=== PATIENT | female | born 1995 | race Caucasian/White ===

== ENCOUNTER 2017-01-05 11:57 | Emergency (ER) | payer BC, OTHER ==
[2017-01-05 11:57] VITALS: TEMP 36.7
--- NOTE | 2017-01-05 12:18 | EMERGENCY ROOM VISIT NOTE ---
History Report prepared by Scribimer: Mira Mac Under the Supervision of: Hector NaqviO. First contact with patient: 12:01 Chief Complaint: HAND PAIN/INJURY Stated Complaint: HAND TRAUMA History of Present Illness The patient is a 21 year old female who presents to the Emergency Room with complaints of severe left third finger pain starting a few minutes prior to arrival. The patient was leading a horse by the [place] when she touched an electric fence. She felt the electric shock go through her and the horse. The horse ran and dragged her through the mud. She denies any loss of consciousness. She was able to ambulate as normal after the incident. She currently complains of a headache and left third finger laceration. She has worsening pain with movement of the left hand. Her tetanus shot is up-to-date. She does not have any medical problems. Pt denies change in vision, fevers, chest pain, shortness of breath, nausea, vomiting, diarrhea, pain with urination , and lower extremity pain. She is left hand dominant. Source of History: patient Onset: a few minutes prior to arrival Position: finger(s) (left third) Symptom Intensity: severe Quality: other (laceration) Modifying Factors (Worsening): movement (of left hand) Associated Symptoms: + headache, No LOC, No fevers, No chest pain, No SOB, No nausea, No vomiting, No diarrhea Review of Systems See HPI for pertinent positives & negatives. A total of 10 systems reviewed and were otherwise negative. Past Medical & Surgical Medical Problems: (1) No Known Active Medical Problems Family History Patient reports no known family medical history. Social History Marital Status: single Occupation Status: student Current/Historical Medications No Active Prescriptions or Reported Meds Allergies Coded Allergies: No Known Allergies (Unverified , 01/05/17) Physical Exam Vital Signs Date Time Temp Pulse Resp B/P (MAP) Pulse Ox O2 Delivery O2 Flow Rate FiO2 01/05/17 14:37 110 20 151/102 96 Room Air 01/05/17 13:46 70 15 137/75 99 Room Air 01/05/17 12:25 83 01/05/17 11:57 36.7 78 20 140/81 100 Room Air Physical Exam GENERAL: Sitting up in bed, disheveled, minimal distress, dirt covering majority of clothes and body. HEAD: normal cephalic, atraumatic EYE EXAM: normal conjunctiva, PERRL and EOM's grossly intact OROPHARYNX: no exudate, no erythema, lips, buccal mucosa, and tongue normal and mucous membranes are moist EARS: TMs clear b/l NECK: supple, no nuchal rigidity, no adenopathy, non-tender CHEST: stable to compression anteriorly and posteriorly. Abrasions anterior chest. LUNGS: clear to auscultation. Normal chest wall mechanics HEART: no murmurs, S1 normal and S2 normal ABDOMEN: abdomen soft, non-tender, normo-active bowel sounds, no masses, no rebound or guarding. PELVIS: stable to compression anteriorly and posteriorly BACK: Back is symmetrical on inspection and there is no deformity, no midline tenderness, no CVA tenderness. UPPER EXTREMITIES: Left third digit on dorsal aspect with a large laceration back to PIP, medial, and lateral, dirt and grass present within the wound, no active bleeding. Nail is still partially in place. Expose bone and tendon present. LOWER EXTREMITIES: full active and passive range of motion of all joints without tenderness to palpation NEURO EXAM: Normal sensorium, cranial nerves II-XII grossly intact, normal speech, no gross weakness of legs. GCS: 15. Medical Decision & Procedures ER Provider Diagnostic Interpretation: X-ray and CT results as stated below per my review and the radiologist's interpretation: CT SCAN OF THE BRAIN WITHOUT IV CONTRAST CLINICAL HISTORY: Trauma. COMPARISON STUDY: No priors. TECHNIQUE: Unenhanced axial CT scan of the brain is performed from the vertex to the skull base. Automated dose control exposure was utilized. A dose lowering technique was utilized adhering to the principles of ALARA. CT DOSE: 638.56 mGycm FINDINGS: Brain parenchyma: The brain parenchyma is normal in appearance. There is no hemorrhage, mass effect, or evidence of acute territorial ischemia by CT criteria. Dillard-white matter is preserved. No extra-axial fluid collection is seen. Ventricles, sulci, cisterns: Normal in configuration. Intracranial vasculature: The visualized intracranial vasculature at the skull base is normal in appearance. Calvarium: There is no depressed calvarial fracture. Sinuses and mastoids: The visualized paranasal sinuses are clear. The mastoid air cells are well pneumatized. Orbits: The bony orbits are grossly intact. IMPRESSION: No acute intracranial abnormality. Electronically signed by: Guillermo Carey M.D. 01/05/2017 1:10 PM Dictated Date/Time: 01/05/2017 1:06 PM LEFT HAND MIN 3 VIEWS ROUTINE HISTORY: 21 years-old Female acute hand trauma with third digit laceration. COMPARISON: None available TECHNIQUE: 3 views of the left hand. FINDINGS: Evaluation of fine bony detail is limited secondary to patient positioning and overlying bandage material. There is a large laceration involving the distal third digit with fracture or dislocation of the distal phalanx which is dislocated radially and dorsally in relation to the middle phalanx. There also appears to be a fracture involving the distal articular aspect of the third middle phalanx. There are multiple radiodensities in the distal third digit suggesting bone fragments or radiopaque foreign bodies. There is associated moderate soft tissue swelling. No additional acute fracture or dislocation is identified. Bone mineralization is within normal limits. IMPRESSION: 1. Acute fracture dislocation of the distal third digit involving the distal and middle phalanges. Multiple radiodensities about the distal third digit soft tissues suggest bone fragments and/or radiopaque foreign bodies. 2. No additional acute fracture or dislocation is identified. The above report was generated using voice recognition software. It may contain grammatical, syntax or spelling errors. Electronically signed by: Maxim Webb M.D. 01/05/2017 1:54 PM Dictated Date/Time: 01/05/2017 1:[address] SCAN OF THE CHEST WITH IV CONTRAST CLINICAL HISTORY: Trauma. COMPARISON STUDY: No priors. TECHNIQUE: Following the IV administration of 92 cc of Optiray 320, CT scan of the thorax was performed from the thoracic inlet to the upper abdomen. Images are reviewed in the axial, sagittal, and coronal planes. IV contrast was administered without complication. A dose lowering technique was utilized adhering to the principles of ALARA. The examination is degraded by streak artifact from the patient's arms which could not be elevated above the chest. CT DOSE: 519.95 mGycm FINDINGS: Thyroid: Imaged portions of the thyroid gland are normal in size and attenuation. Thoracic aorta: The thoracic aorta is normal in caliber and demonstrates standard 3-vessel arch anatomy. No dissection is seen. Pulmonary vasculature: The pulmonary trunk is normal in caliber. There are no filling defects identified in the central pulmonary vessels to indicate pulmonary embolus. Note that this examination was not protocoled for evaluation of the pulmonary arteries. Heart: The heart is normal in size and configuration, and without pericardial effusion. Lungs and pleural spaces: The lungs and pleural spaces are clear. No pneumothorax is seen. The trachea and central airways are patent. Mediastinum: There is no mediastinal lymphadenopathy. Starla: Clear. Axillae: There is no axillary lymphadenopathy. Upper abdomen: Partially visualized upper abdominal viscera is within normal limits. Skeletal structures: The bony thorax appears intact. No lytic or blastic bony lesions are seen. IMPRESSION: 1. There is no acute posttraumatic intrathoracic abnormality. 2. The lungs are clear. Electronically signed by: Guillermo Carey M.D. 01/05/2017 1:22 PM Dictated Date/Time: 01/05/2017 1:[address] SCAN OF THE CERVICAL SPINE CLINICAL HISTORY: Trauma. COMPARISON STUDY: No priors. TECHNIQUE: CT scan of the cervical spine is performed from the skull base to the upper thoracic spine. Images are reviewed in the axial, sagittal, and coronal planes. IV contrast was not administered for this examination. A dose lowering technique was utilized adhering to the principles of ALARA. CT DOSE: 446.00 mGycm FINDINGS: Skeletal structures: The skeletal structures are well mineralized. There is no evidence of fracture or subluxation involving the cervical spine. Vertebral body height and alignment are maintained. There is straightening of cervical lordosis with mild reversal centered at C4-C5. The odontoid process and lateral masses are intact. The atlantoaxial articulation is preserved. The spinous processes appear intact. Intervertebral discs: The disc spaces are well maintained. Central canal: Widely patent. Soft tissues: The prevertebral and paraspinous soft tissues are within normal limits. Calvarium: The visualized calvarium at the skull base appears intact. Brain parenchyma: Partially visualized brain parenchyma the skull base is within normal limits. Sinuses and mastoids: The visualized paranasal sinuses are clear. The mastoid air cells are well pneumatized. Lung apices: Clear as visualized. Soft tissues: There is a small suboccipital scalp contusion. IMPRESSION: There is no evidence of fracture or subluxation involving the cervical spine. Electronically signed by: Guillermo Carey M.D. 01/05/2017 1:16 PM Dictated Date/Time: 01/05/2017 1:[address] OF THE ABDOMEN AND PELVIS WITH CONTRAST CLINICAL HISTORY: Drug and hit by horse. COMPARISON STUDY: None. TECHNIQUE: Following IV administration of 92 mL of Optiray-320, axial images of the abdomen and pelvis were obtained from the lung bases to the proximal femurs. Images were reviewed in the axial, sagittal, and coronal planes. IV contrast was administered without complication. A dose lowering technique was utilized adhering to the principles of ALARA. FINDINGS: No hemoperitoneum or pneumoperitoneum is present. There is no evidence of traumatic injury to the liver, spleen, adrenal glands, kidneys or pancreas. The caliber and wall thickness of small and large bowel are normal. A 4.4 cm water attenuation right adnexal lesion suggests an ovarian cyst. There is no acute lumbar spine or pelvic fracture. There are bilateral L5 pars defects which are chronic. There is no anterolisthesis. IMPRESSION: 1. No acute traumatic findings within the abdomen or pelvis. 2. 4.4 cm water attenuation right adnexal lesion. This likely reflects an ovarian cyst. A follow-up pelvic ultrasound in 6 weeks to ensure resolution is recommended. Electronically signed by: Daniel Luna M.D. 01/05/2017 1:22 PM Dictated Date/Time: 01/05/2017 1:15 PM Laboratory Results 01/05/17 11:10 Red Blood Count 4.93, Mean Corpuscular Volume 79.1, Mean Corpuscular Hemoglobin 26.4, Mean Corpuscular Hemoglobin Concent 33.3, Mean Platelet Volume 10.1, Neutrophils (%) (Auto) 63.2, Lymphocytes (%) (Auto) 29.7, Monocytes (%) (Auto) 5.3, Eosinophils (%) (Auto) 1.0, Basophils (%) (Auto) 0.4, Neutrophils # (Auto) 4.27, Lymphocytes # (Auto) 2.01, Monocytes # (Auto) 0.36, Eosinophils # (Auto) 0.07, Basophils # (Auto) 0.03 01/05/17 11:10 Test 01/05/17 11:10 01/05/17 12:28 01/05/17 12:40 White Blood Count 6.77 K/uL (4.8-10.8) Red Blood Count 4.93 M/uL (4.2-5.4) Hemoglobin 13.0 g/dL (12.0-16.0) Hematocrit 39.0 % (37-47) Mean Corpuscular Volume 79.1 fL (80-100) Mean Corpuscular Hemoglobin 26.4 pg (25-34) Mean Corpuscular Hemoglobin Concent 33.3 g/dl (32-36) Platelet Count 206 K/uL (130-400) Mean Platelet Volume 10.1 fL (7.4-10.4) Neutrophils (%) (Auto) 63.2 % Lymphocytes (%) (Auto) 29.7 % Monocytes (%) (Auto) 5.3 % Eosinophils (%) (Auto) 1.0 % Basophils (%) (Auto) 0.4 % Neutrophils # (Auto) 4.27 K/uL (1.4-6.5) Lymphocytes # (Auto) 2.01 K/uL (1.2-3.4) Monocytes # (Auto) 0.36 K/uL (0.11-0.59) Eosinophils # (Auto) 0.07 K/uL (0-0.5) Basophils # (Auto) 0.03 K/uL (0-0.2) RDW Standard Deviation 43.2 fL (36.4-46.3) RDW Coefficient of Variation 14.9 % (11.5-14.5) Immature Granulocyte % (Auto) 0.4 % Immature Granulocyte # (Auto) 0.03 K/uL (0.00-0.02) Estimated GFR () 100.6 Estimated GFR (Non- 86.8 BUN/Creatinine Ratio 11.8 (10-20) Calcium Level 9.0 mg/dl (8.5-10.1) Total Bilirubin 0.7 mg/dl (0.2-1) Direct Bilirubin 0.1 mg/dl (0-0.2) Aspartate Amino Transf (AST/SGOT) 16 U/L (15-37) Alanine Aminotransferase (ALT/SGPT) 18 U/L (12-78) Alkaline Phosphatase 80 U/L (45-117) Total Protein 7.7 gm/dl (6.4-8.2) Albumin 4.3 gm/dl (3.4-5.0) Lipase 180 U/L (73-393) Bedside Hemoglobin 14.6 g/dl (12.0-16.0) Bedside Hematocrit 43 % (37-47) Bedside Sodium 140 mEq/L (135-144) Bedside Potassium 3.3 mEq/L (3.3-5.0) Bedside Chloride 104 mEq/L (101-112) Bedside Total CO2 23 mEq/l (24-31) Anion Gap 18.0 mmol/L (16-25) Bedside Blood Urea Nitrogen 12 mg/dl (7-18) Bedside Creatinine 0.8 mg/dl Bedside Glucose (other) 142 mg/dl (70-99) Bedside Ionized Calcium (Kumar) 1.23 mmol/l Urine Color DK YELLOW Urine Appearance CLOUDY (CLEAR) Urine pH 5.0 (4.5-7.5) Urine Specific Ninole 1.031 (1.000-1.030) Urine Protein 1+ (NEG) Urine Glucose (UA) NEG (NEG) Urine Ketones 2+ (NEG) Urine Occult Blood NEG (NEG) Urine Nitrite NEG (NEG) Urine Bilirubin NEG (NEG) Urine Urobilinogen NEG (NEG) Urine Leukocyte Esterase NEG (NEG) Urine WBC (Auto) 1-5 /hpf (0-5) Urine RBC (Auto) 0-4 /hpf (0-4) Urine Hyaline Casts (Auto) 10-30 /lpf (0-5) Urine Epithelial Cells (Auto) >30 /lpf (0-5) Urine Bacteria (Auto) NEG (NEG) Urine Crystals CALCIUM OXALATE (NONE Urine Pathogenic Casts /lpf (0) Urine Test NEG (NEG) Laboratory results per my review. Medications Administered Medications (Trade) Dose Ordered Sig/Parris Route Start Time Stop Time Status Last Admin Dose Admin Cefazolin Sodium (Ancef 1000mg/55 ml D5W) 2,000 mg NOW STAT IV 01/05/17 13:43 01/05/17 13:44 DC 01/05/17 14:32 2,000 MG Sodium Chloride 1,000 ml @ 999 mls/hr Q1H1M STAT IV 01/05/17 13:43 01/05/17 14:43 DC 01/05/17 14:31 999 MLS/HR Ondansetron HCl (Zofran Inj) 4 mg NOW STAT IV 01/05/17 13:44 01/05/17 13:45 DC 01/05/17 14:30 4 MG Morphine Sulfate (MoRPHine SULFATE INJ) 4 mg NOW STAT IV 01/05/17 13:44 01/05/17 13:45 DC 01/05/17 14:31 4 MG ECG Indication: other (Trauma) Rate (beats per minute): 76 Rhythm: sinus rhythm Findings: no ectopy, other (normal axis) ED Course ED COURSE: Vital signs were reviewed and showed tachycardic. The patients medical record was reviewed The above diagnostic studies were performed and reviewed. ED treatments and interventions as stated above. 1201: The patient was evaluated in room C10. A complete history and physical examination was performed. 1307: I reevaluated the patient who is resting comfortably. 1343: Sodium Chloride 1000 ml @ 999 mls/hr IV, Cefazolin Sodium 2000 mg IV 1344: Morphine Sulfate 4 mg IV, Zofran Inj 4 mg IV 1347: I discussed the patient's case with Braden Allred PA-C orthopedic surgery with [facility]. 1349: I updated the patient. 1410: Braden Allred discussed the patient's case with mom. Patient's mom wants to drive down here and pick her up. 1459: The patient's mom wants her to be transferred to [facility]. Braden has blocked her and washed out the finger. The patient is currently resting comfortably. Please see dictation below. Pt will be transferred to [facility]. Medical Decision Differential diagnoses include major intracranial, cervical, spinal, thoracic, abdominal, pelvic and neurologic injury. Fracture, contusion, sprain, strain, laceration, abrasions included as well. Patient is a 21-year-old female who was walking course and got shocked on a fence and drug through the mud as her hand was attached to the horse. Trauma scan was performed and was unremarkable. X-rays of her left digit show a fracture dislocation at the left third DIP. Flexion does not appear to be intact but extension appears to be slightly intact. Patient was evaluated by orthopedics who was going to take the patient to the OR for washout but noted that the patient could lose a portion of the digit. Patient was unhappy with this and consequently a long discussion with orthopedics and the patient and she preferred to see a hand specialist. I did discuss case with our hand surgeon following having the patient evaluated by [facility] orthopedics and contacting Dr. Cooley in order to locate Dr. Wiley from Hand Surgery but he is currently not grey iron molder or unavailable. CBC along with BMP, LFTs, bilirubin and lipase is unremarkable. UA shows no blood. was negative. Dislocation was reduced and patient was partially washout at bedside. She was given a dose of Ancef. Tetanus is up-to-date per patient. Called [facility] on 2 separate occasions as this was request per the mother. I recommended [place] [facility] [place] the closest and with an open dirty fracture felt this was emergent but the patient and mother declined. Patient was accepted to [facility] but unfortunately there was not an orthopedic hand surgeon grey iron molder as requested by the patient. This bed was canceled by myself and I called [place] [facility]. Patient was accepted by Dr. Artis from hand surgery to [facility] ER. Wound will be approximated with 3 sutures by my PA. Patient will be transferred to [facility] via private vehicle. Patient was signed out to Dr. Benson awaiting transfer. Consults Time Called: 1340 Consulting Physician: Braden Allred, orthopedic surgeon with [facility] Returned Call: 1347 I discussed the patient's case with Braden Allred, orthopedic surgeon with [facility]. Additional Consults: Consulted Physician: Dr. Wiley Additional Comments: Not grey iron molder and unable to come in. Consulted Physician: Dr. Cooley Additional Comments: Was attempting to locate Dr. Wiley from hand surgery. He recommended calling the clinic/office Impression Primary Impression: Open fracture Additional Impression: Hypokalemia Scribe Attestation The scribe's documentation has been prepared under my direction and personally reviewed by me in its entirety. I confirm that the note above accurately reflects all work, treatment, procedures, and medical decision making performed by me. Departure Information Prescriptions No Active Prescriptions or Reported Meds Patient Instructions My [facility] Problem Qualifiers
[2017-01-05 12:38] LABS: BASO % 0.4 %; BASO ABS # 0.03 K/uL (0-0.2); COMPLETE YES; IG% 0.4 %; LYMPH % 29.7 %; LYMPH ABS # 2.01 K/uL (1.2-3.4); MEAN CELL VOLUME 79.1 fL (80-100); MEAN CORPUSCULAR HEMOGLOBIN 26.4 pg (25-34); MEAN CORPUSCULAR HGB CONC 33.3 g/dl (32-36); MEAN PLATELET VOLUME 10.1 fL (7.4-10.4); MONO % 5.3 %; NEUT % 63.2 %; PLATELET COUNT 206 K/uL (130-400); RED BLOOD COUNT 4.93 M/uL (4.2-5.4); WHITE BLOOD COUNT 6.77 K/uL (4.8-10.8)
[2017-01-05 12:39] LABS: ISTAT CREATININE 0.8 mg/dl; ISTAT HEMOGLOBIN 14.6 g/dl (12.0-16.0); ISTAT IONIZED CALCIUM 1.23 mmol/l
[2017-01-05 12:54] LABS: ALT/SGPT 18 U/L (12-78); AST/SGOT 16 U/L (15-37); BLOOD UREA NITROGEN 11 mg/dl (7-18); BUN/CREATININE RATIO 11.8 (10-20); CARBON DIOXIDE 24 mmol/L (21-32); CHLORIDE 108 mmol/L (98-107); CREATININE 0.95 mg/dl (0.60-1.20); GLUCOSE 136 mg/dl (70-99); POTASSIUM 3.3 mmol/L (3.5-5.1); SODIUM 139 mmol/L (136-145)
[2017-01-05 12:57] LABS: ALKALINE PHOSPHATASE 80 U/L (45-117)
[2017-01-05 12:58] LABS: URINE APPEARANCE CLOUDY (CLEAR); URINE BILIRUBIN NEG (NEG); URINE COLOR DK YELLOW; URINE EPITHELIAL CELL AUTO >30 /lpf (0-5); URINE NITRITE NEG (NEG); URINE SPECIFIC GRAVITY 1.031 (1.000-1.030); UROBILINOGEN NEG (NEG); ZZUR CULT IF INDIC CLEAN CATCH NO
[2017-01-05 13:06] LABS: MANUAL MICROSCOPIC REQUIRED? NO; REVIEW REQ? YES
--- NOTE | 2017-01-05 13:14 | DIAGNOSTIC IMAGING REPORT ---
CT SCAN OF THE BRAIN WITHOUT IV CONTRAST CLINICAL HISTORY: Trauma. COMPARISON STUDY: No priors. TECHNIQUE: Unenhanced axial CT scan of the brain is performed from the vertex to the skull base. Automated dose control exposure was utilized. A dose lowering technique was utilized adhering to the principles of ALARA. CT DOSE: 638.56 mGycm FINDINGS: Brain parenchyma: The brain parenchyma is normal in appearance. There is no hemorrhage, mass effect, or evidence of acute territorial ischemia by CT criteria. Dillard-white matter is preserved. No extra-axial fluid collection is seen. Ventricles, sulci, cisterns: Normal in configuration. Intracranial vasculature: The visualized intracranial vasculature at the skull base is normal in appearance. Calvarium: There is no depressed calvarial fracture. Sinuses and mastoids: The visualized paranasal sinuses are clear. The mastoid air cells are well pneumatized. Orbits: The bony orbits are grossly intact. IMPRESSION: No acute intracranial abnormality. Electronically signed by: Guillermo Carey M.D. 01/05/2017 1:10 PM Dictated Date/Time: 01/05/2017 1:06 PM
[2017-01-05] MEDS ORDERED: OPTIRAY 320 IV PRN (13:15)
--- NOTE | 2017-01-05 13:17 | DIAGNOSTIC IMAGING REPORT ---
CT SCAN OF THE CERVICAL SPINE CLINICAL HISTORY: Trauma. COMPARISON STUDY: No priors. TECHNIQUE: CT scan of the cervical spine is performed from the skull base to the upper thoracic spine. Images are reviewed in the axial, sagittal, and coronal planes. IV contrast was not administered for this examination. A dose lowering technique was utilized adhering to the principles of ALARA. CT DOSE: 446.00 mGycm FINDINGS: Skeletal structures: The skeletal structures are well mineralized. There is no evidence of fracture or subluxation involving the cervical spine. Vertebral body height and alignment are maintained. There is straightening of cervical lordosis with mild reversal centered at C4-C5. The odontoid process and lateral masses are intact. The atlantoaxial articulation is preserved. The spinous processes appear intact. Intervertebral discs: The disc spaces are well maintained. Central canal: Widely patent. Soft tissues: The prevertebral and paraspinous soft tissues are within normal limits. Calvarium: The visualized calvarium at the skull base appears intact. Brain parenchyma: Partially visualized brain parenchyma the skull base is within normal limits. Sinuses and mastoids: The visualized paranasal sinuses are clear. The mastoid air cells are well pneumatized. Lung apices: Clear as visualized. Soft tissues: There is a small suboccipital scalp contusion. IMPRESSION: There is no evidence of fracture or subluxation involving the cervical spine. Electronically signed by: Guillermo Carey M.D. 01/05/2017 1:16 PM Dictated Date/Time: 01/05/2017 1:14 PM
--- NOTE | 2017-01-05 13:23 | DIAGNOSTIC IMAGING REPORT ---
CT SCAN OF THE CHEST WITH IV CONTRAST CLINICAL HISTORY: Trauma. COMPARISON STUDY: No priors. TECHNIQUE: Following the IV administration of 92 cc of Optiray 320, CT scan of the thorax was performed from the thoracic inlet to the upper abdomen. Images are reviewed in the axial, sagittal, and coronal planes. IV contrast was administered without complication. A dose lowering technique was utilized adhering to the principles of ALARA. The examination is degraded by streak artifact from the patient's arms which could not be elevated above the chest. CT DOSE: 519.95 mGycm FINDINGS: Thyroid: Imaged portions of the thyroid gland are normal in size and attenuation. Thoracic aorta: The thoracic aorta is normal in caliber and demonstrates standard 3-vessel arch anatomy. No dissection is seen. Pulmonary vasculature: The pulmonary trunk is normal in caliber. There are no filling defects identified in the central pulmonary vessels to indicate pulmonary embolus. Note that this examination was not protocoled for evaluation of the pulmonary arteries. Heart: The heart is normal in size and configuration, and without pericardial effusion. Lungs and pleural spaces: The lungs and pleural spaces are clear. No pneumothorax is seen. The trachea and central airways are patent. Mediastinum: There is no mediastinal lymphadenopathy. Starla: Clear. Axillae: There is no axillary lymphadenopathy. Upper abdomen: Partially visualized upper abdominal viscera is within normal limits. Skeletal structures: The bony thorax appears intact. No lytic or blastic bony lesions are seen. IMPRESSION: 1. There is no acute posttraumatic intrathoracic abnormality. 2. The lungs are clear. Electronically signed by: Guillermo Carey M.D. 01/05/2017 1:22 PM Dictated Date/Time: 01/05/2017 1:18 PM
--- NOTE | 2017-01-05 13:24 | DIAGNOSTIC IMAGING REPORT ---
CT OF THE ABDOMEN AND PELVIS WITH CONTRAST CLINICAL HISTORY: Drug and hit by horse. COMPARISON STUDY: None. TECHNIQUE: Following IV administration of 92 mL of Optiray-320, axial images of the abdomen and pelvis were obtained from the lung bases to the proximal femurs. Images were reviewed in the axial, sagittal, and coronal planes. IV contrast was administered without complication. A dose lowering technique was utilized adhering to the principles of ALARA. FINDINGS: No hemoperitoneum or pneumoperitoneum is present. There is no evidence of traumatic injury to the liver, spleen, adrenal glands, kidneys or pancreas. The caliber and wall thickness of small and large bowel are normal. A 4.4 cm water attenuation right adnexal lesion suggests an ovarian cyst. There is no acute lumbar spine or pelvic fracture. There are bilateral L5 pars defects which are chronic. There is no anterolisthesis. IMPRESSION: 1. No acute traumatic findings within the abdomen or pelvis. 2. 4.4 cm water attenuation right adnexal lesion. This likely reflects an ovarian cyst. A follow-up pelvic ultrasound in 6 weeks to ensure resolution is recommended. Electronically signed by: Daniel Luna M.D. 01/05/2017 1:22 PM Dictated Date/Time: 01/05/2017 1:15 PM
[2017-01-05] MEDS ORDERED: CEFAZOLIN SOD 1000MG/55 ML D5W IV STA (13:43)
[2017-01-05] MEDS ORDERED: SODIUM CHLORIDE 0.9% 1000ML 1,000 ML IV STA (13:43)
[2017-01-05] MEDS ORDERED: ONDANSETRON INJ 2 MG/ML 2 ML VIAL IV STA ×2 (13:44→16:52)
[2017-01-05] MEDS ORDERED: MoRPHine SULFATE 4 MG/ML 1 ML CARP\\VIAL IV STA (13:44)
--- NOTE | 2017-01-05 13:55 | DIAGNOSTIC IMAGING REPORT ---
LEFT HAND MIN 3 VIEWS ROUTINE HISTORY: 21 years-old Female acute hand trauma with third digit laceration. COMPARISON: None available TECHNIQUE: 3 views of the left hand. FINDINGS: Evaluation of fine bony detail is limited secondary to patient positioning and overlying bandage material. There is a large laceration involving the distal third digit with fracture or dislocation of the distal phalanx which is dislocated radially and dorsally in relation to the middle phalanx. There also appears to be a fracture involving the distal articular aspect of the third middle phalanx. There are multiple radiodensities in the distal third digit suggesting bone fragments or radiopaque foreign bodies. There is associated moderate soft tissue swelling. No additional acute fracture or dislocation is identified. Bone mineralization is within normal limits. IMPRESSION: 1. Acute fracture dislocation of the distal third digit involving the distal and middle phalanges. Multiple radiodensities about the distal third digit soft tissues suggest bone fragments and/or radiopaque foreign bodies. 2. No additional acute fracture or dislocation is identified. The above report was generated using voice recognition software. It may contain grammatical, syntax or spelling errors. Electronically signed by: Maxim Webb M.D. 01/05/2017 1:54 PM Dictated Date/Time: 01/05/2017 1:51 PM
[2017-01-05] MEDS ORDERED: LIDOCAINE HCL 1% 20 ML VIAL ONE (14:21)
--- NOTE | 2017-01-05 16:46 | EMERGENCY ROOM VISIT NOTE ---
ED Visit Note I was asked by Jonh Hong M.D. to loosely close a left third finger open fracture and laceration. A digital block was previously performed and the wound was copiously irrigated by orthopedics. Additional 1% buffered lidocaine was used to get adequate anesthesia. 3 5-0 interrupted nylon sutures were placed loosely to approximate the wound edges. A wet-to-dry dressing was applied. The patient tolerated procedure well.
--- NOTE | 2017-01-05 16:48 | Orthopedic Consultation ---
Orthopedic Consultation Date of Consultation: Jan 05, 2017. Attending Physician: Dr. Yordan Trinidad MD Reason for Consultation: Left middle finger injury History of Present Illness 21 year old female [employer] employee c/o injury to the left middle finger. Chica was horseback riding when she got her left middle finger caught in a fence. She is left hand dominant and denies any prior history of injury to this site and extremity. Admits to pain, deformity, and open wound. She denies any numbness or tingling. She is from [place], [place]. 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 Denies tobacco, ETOH, and illegal drug use. Left hand dominant. Family History Patient reports no known family medical history. Non-contributory Social History Smoking Status: Never Smoker Marital Status: single Occupation Status: student Allergies Coded Allergies: No Known Allergies (Unverified , 01/05/17) Home Medications No Active Prescriptions or Reported Meds Current Inpatient Medications Current Inpatient Medications Medications (Trade) Dose Ordered Sig/Parris Route Start Time Stop Time Status Last Admin Dose Admin Ioversol (Optiray 320) 100 ml UD PRN IV 01/05/17 13:15 01/09/17 13:14 Review of Systems Constitutional: No fever, No chills, No sweats, No weight loss, No weakness, No fatigue, No problem reported Respiratory: No cough, No shortness of breath Cardiovascular: No chest pain Musculoskeletal: + joint pain, + problem reported (reports pain in the left middle finger ) Neurologic: No numbness/tingling Integumentary: + bleeding, + problem reported (reports open wound left middle finger ) Physical Exam Date Time Temp Pulse Resp B/P (MAP) Pulse Ox O2 Delivery O2 Flow Rate FiO2 01/05/17 14:37 110 20 151/102 96 Room Air 01/05/17 13:46 70 15 137/75 99 Room Air 01/05/17 12:25 83 01/05/17 11:57 36.7 78 20 140/81 100 Room Air Pleasant, NAD, A&O x 3, appears currently stated age. Present with 2 other [employer] staff members. General Appearance: + mild distress Head: normocephalic, atraumatic Eyes: normal inspection ENT: normal ENT inspection Extremities/Musculoskelatal: normal capillary refill, + pertinent finding ( there is an open wound on the dorsal aspect of the left middle finger that extends to the mid phalanx, there is surrounding dirt on the skin edges, the extensor tendon is in full view and is lacerated at the level of the DIP joint, there also appears to be open fractures of the distal mid-phalynx and proximal distal phalynx, the finger nail is avulsed and has very little connection, there is no profuse bleeding, the distal phalynx reduces with gentle pressure, there is no extension when isolating the DIP joint, it does appear the flexor tendons are intact at the level of the MCP, PIP, and DIP joints FDS and FDP, significant tenderness with mild palpation around the injury site, the remaining fingers, hand, and wrist were examined and are atraumatic) Neurologic/Psych: no motor/sensory deficits (patient has full 2 point descrimination on distal tip of left middle finger and volar surface of proximal , mid, and distal aspect of finger), alert, normal mood/affect, oriented x 3 Skin: + pertinent finding (open wound noted on the dorsal aspect of the left middle finger, distal aspect, hemostasis controlled, the skin on the distal tip of the finger appears viable, capillary refill is under 2 seconds) Laboratory Results Date Time Temp Pulse Resp B/P (MAP) Pulse Ox O2 Delivery O2 Flow Rate FiO2 01/05/17 14:37 110 20 151/102 96 Room Air 01/05/17 13:46 70 15 137/75 99 Room Air 01/05/17 12:25 83 01/05/17 11:57 36.7 78 20 140/81 100 Room Air Last 24 Hours Test 01/05/17 11:10 01/05/17 12:28 01/05/17 12:40 White Blood Count 6.77 K/uL Red Blood Count 4.93 M/uL Hemoglobin 13.0 g/dL Hematocrit 39.0 % Mean Corpuscular Volume 79.1 fL Mean Corpuscular Hemoglobin 26.4 pg Mean Corpuscular Hemoglobin Concent 33.3 g/dl Platelet Count 206 K/uL Mean Platelet Volume 10.1 fL Neutrophils (%) (Auto) 63.2 % Lymphocytes (%) (Auto) 29.7 % Monocytes (%) (Auto) 5.3 % Eosinophils (%) (Auto) 1.0 % Basophils (%) (Auto) 0.4 % Neutrophils # (Auto) 4.27 K/uL Lymphocytes # (Auto) 2.01 K/uL Monocytes # (Auto) 0.36 K/uL Eosinophils # (Auto) 0.07 K/uL Basophils # (Auto) 0.03 K/uL RDW Standard Deviation 43.2 fL RDW Coefficient of Variation 14.9 % Immature Granulocyte % (Auto) 0.4 % Immature Granulocyte # (Auto) 0.03 K/uL Sodium Level 139 mmol/L Potassium Level 3.3 mmol/L Chloride Level 108 mmol/L Carbon Dioxide Level 24 mmol/L Anion Gap 7.0 mmol/L 18.0 mmol/L Blood Urea Nitrogen 11 mg/dl Creatinine 0.95 mg/dl Estimated GFR () 100.6 Estimated GFR (Non- 86.8 BUN/Creatinine Ratio 11.8 Random Glucose 136 mg/dl Calcium Level 9.0 mg/dl Total Bilirubin 0.7 mg/dl Direct Bilirubin 0.1 mg/dl Aspartate Amino Transf (AST/SGOT) 16 U/L Alanine Aminotransferase (ALT/SGPT) 18 U/L Alkaline Phosphatase 80 U/L Total Protein 7.7 gm/dl Albumin 4.3 gm/dl Lipase 180 U/L Bedside Hemoglobin 14.6 g/dl Bedside Hematocrit 43 % Bedside Sodium 140 mEq/L Bedside Potassium 3.3 mEq/L Bedside Chloride 104 mEq/L Bedside Total CO2 23 mEq/l Bedside Blood Urea Nitrogen 12 mg/dl Bedside Creatinine 0.8 mg/dl Bedside Glucose (other) 142 mg/dl Bedside Ionized Calcium (Kumar) 1.23 mmol/l Urine Color DK YELLOW Urine Appearance CLOUDY Urine pH 5.0 Urine Specific Arnett 1.031 Urine Protein 1+ Urine Glucose (UA) NEG Urine Ketones 2+ Urine Occult Blood NEG Urine Nitrite NEG Urine Bilirubin NEG Urine Urobilinogen NEG Urine Leukocyte Esterase NEG Urine WBC (Auto) 1-5 /hpf Urine RBC (Auto) 0-4 /hpf Urine Hyaline Casts (Auto) 10-30 /lpf Urine Epithelial Cells (Auto) >30 /lpf Urine Bacteria (Auto) NEG Urine Crystals CALCIUM OXALATE Urine Pathogenic Casts /lpf Urine Test NEG X-Rays: Left hand reveals an injury to the left middle finger, distal aspect. There is a fracture dislocation at the DIP joint involving the distal aspect of the mid phalynx and proximal aspect of the distal phalynx. There appears to be multiple foreign bodies versus jude fragment throughout the soft tissues of the left middle finger distal aspect. AP, Lateral, and Oblique views obtained. Assessment & Plan Assessment: Left middle finger open fracture dislocation with extensor tendon laceration Plan: Chica was educated regarding today's findings. The patient is requesting a "hand specialist." Multiple attempts were made to have the patient transferred to a facility closer to home and facility of choice did not have a hand surgeon available. The patient was offered transfer to [facility] for further care and she has accepted. Her family was notified and accepting via phone call. Her family is driving from [place], [place] and is going to drive her to [facility]. Dr. Trinidad examined Chica as well and is agreeable with this plan of care. Dr. Trinidad spoke with further ER physician/PA team and advised to loosely close the injury site at the left middle finger, wet to dry dressing, resting volar splint , and additional dose of IV antibiotics prior transfer. All parties agreeable and understand. The patient had no other questions or concerns. If we can be of any further assistance please call [facility] in [place], [place] at [phone], thank you. Procedure: The patient was agreeable to receiving local anesthetic for a digital block and for me to irrigate her wound of the left middle finger and attempt to identify further injury. Verbal consent obtained. I performed a digital block at the base of the left middle finger volar aspect using 6cc of 1% Xylocaine/without epinephrine . Full anesthesia of the finger successfully achieved. Betadine used to cleanse the skin prior local injection. She tolerated this very well. I irrigated the wound with a bulb syringe and large basin. 1000cc of 0.9% Sodium Chloride sterile solution was used to copiously irrigate the wound. Gentle exploration discovered further extensor tendon injury and further identified her fractures surrounding the DIP joint. There were no obvious bleeders that required any type of ligation or further attention. Hemostasis was achieved. The tip of the finger was rechecked and remains viable with good sensation with light touch and capillary refill remaining under 2 seconds. There were several pieces of debris washed from the wound of the left middle finger. After copious irrigation the injury site looked much body cleaner and no other foreign material or debris was identified for removal. Blood loss was approximately 5cc with estimation from diluted saline and surrounding bandages. A wet to dry dressing was applied with surrounding sterile 4x4 gauze and cling wrap.
[2017-01-05] MEDS ORDERED: FENTANYL CITRATE INJ 50 MCG/1 ML 2 ML VIAL IV STA (16:52)
--- NOTE | 2017-01-05 17:42 | EMERGENCY ROOM VISIT NOTE ---
ED Visit Note First contact with patient: 16:52 I received this patient at change of shift signout from Dr. Hong. Please see his note for complete history and physical. The patient is a 21-year-old female who presented to the emergency department with a left finger injury requiring a hand specialist. The patient was treated with wound care and IV antibiotic as well as IV pain medication. She was reevaluated multiple times. She was accepted at [facility]. She was transferred with IV lock in place. She was treated with further IV pain medication by myself was comfortable upon discharge and transfer.
--- NOTE | 2017-01-05 18:01 | Medical Consult ---
Consultation Note Date of Service Jan 05, 2017. Consultation Note I saw and examined Ms. Coto, and agree with the findings and plan of care as described by my PA, Arnol Pelletier in the consultation note, which I discussed with him.
[2017-01-05 18:38] VITALS: BP 125/76; PULSE 75; O2SAT 100
== END 2017-01-05 18:15 | disposition short-term general hospital (02) ==
LOC: C.EDC 12:01
DX: S62.633B Displaced fracture of distal phalanx of left middle finger, initial encounter for open fracture (principal); W23.0XXA Caught, crushed, jammed, or pinched between moving objects, initial encounter; E87.6 Hypokalemia